=== PATIENT | female | born 1955 | race Caucasian/White ===

== ENCOUNTER 2017-07-17 20:20 | Inpatient (IN) | END 2017-07-21 20:46 | disposition home or self-care (01) | DRG 74 ==

== ENCOUNTER 2017-08-20 13:19 | Emergency (ER) | END 2017-08-20 14:25 | disposition home or self-care (01) ==

== ENCOUNTER 2018-01-15 20:15 | Emergency (ER) | END 2018-01-16 00:17 | disposition home or self-care (01) ==

== ENCOUNTER 2019-03-28 17:52 | Emergency (ER) | payer MEDICARE, OTHER ==
[~2019-03-28] VITALS: Ht 165.1 cm; Wt 70.5 kg
[~2019-03-28 17:52] MED LIST: ACET1TAB40 PO; BENZ-6 PO; CARB200T3 PO; CHOL200056 PO; D-ME473S2 PO; EZET10TA19 PO; GABA300C16 PO; HYDR25TA6 PO; LISI40TA3 PO; MECL-77 PO; OMEP20CA17 PO; ONDA4TAB14 PO; ONDA4TAB8 PO; OSEL75CA23 PO; SERT50TA6 PO; SUMA25TA34 PO; ZOLP5TAB7 PO
[2019-03-28 18:26] VITALS: BP 150/77; PULSE 68; RESP 18; Ht 165.1 cm; Wt 70.5 kg
== END 2019-03-28 19:35 | disposition left against medical advice (07) ==
LOC: FTE 17:52
DX: Z53.21 Procedure and treatment not carried out due to patient leaving prior to being seen by health care provider (principal)